=== PATIENT | male | born 1935 | race Caucasian/White ===

== ENCOUNTER → 2016-07-13 | Outpatient (CLI) | payer MEDICARE | LOC: M LAB 08:38 | PROVIDERS: ATTEND Radiology Radiation Oncology | DX: C61 Malignant neoplasm of prostate (principal) ==

== ENCOUNTER → 2016-07-19 | Outpatient (CLI) | payer MEDICARE ==
--- NOTE | 2016-07-20 06:58 | RADONC ---
RADIATION ONCOLOGY FOLLOWUP NOTE DATE: 07/19/2016 CHART NUMBER: [id number] DIAGNOSIS: Prostate cancer Stage: II A, [id number]. ECOG performance status zero. FOLLOWUP NOTE: Mr. 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 The patient presents today reporting that he is doing quite well with no complaints at this time related to his radiation therapy or disease. He has no urinary or bowel difficulties and no bone pain. REVIEW OF SYSTEMS: The patient's review of systems is noncontributory. Denies nausea, vomiting, fevers, chills, night sweats, diplopia, headaches, anxiety or depression, anorexia, weight loss, visual disturbances, chest pain, urinary or bowel difficulties, bone pain, or neurological problems. PHYSICAL EXAMINATION: The patient is a well-developed, well-nourished male in no acute distress. HEENT exam is normocephalic, atraumatic. Extraocular movements are intact. There is no palpable cervical, supraclavicular, infraclavicular, axillary, or inguinal lymphadenopathy present. Lungs are clear to auscultation and percussion. Heart has a regular rate and rhythm. Abdomen is benign with no hepatosplenomegaly, masses, or tenderness. Rectal examination reveals a normal anal sphincter tone. His prostate is smooth with no evidence of nodularity. Skeletal examination reveals no tenderness to pressure or percussion of the bony skeleton. Extremities reveal no clubbing, cyanosis, or edema. Neurologic exam is grossly intact, as is the remainder of the physical examination. ASSESSMENT: The patient is clinically JACQUES at this time and will be seen by us again in 6 months for further followup. He will also continue to be followed by his other physicians as well. cc: MD Margie Holt MD Alejandro Rodriguez, MD MTDD
== END ==
LOC: M ONCR 08:55
PROVIDERS: ATTEND Radiology Radiation Oncology
DX: C61 Malignant neoplasm of prostate (principal)

== ENCOUNTER → 2017-04-04 | Outpatient (CLI) | payer MEDICARE ==
[2017-04-04 10:10] LABS: PROSTATIC SPECIFIC AG MONITOR 0.31 NG/ML (< 4.0)
== END ==
LOC: M ONCR 09:00
DX: C61 Malignant neoplasm of prostate (principal)
CPT/HCPCS: 84153

== ENCOUNTER → 2017-10-10 | Outpatient (CLI) | payer MEDICARE ==
[2017-10-10 10:12] LABS: PROSTATIC SPECIFIC AG MONITOR 0.28 NG/ML (< 4.0)
== END ==
LOC: M ONCR 08:58
DX: C61 Malignant neoplasm of prostate (principal)
CPT/HCPCS: 84153

== ENCOUNTER → 2018-04-10 | Outpatient (CLI) | payer MEDICARE ==
[~2018-04-10] MED LIST: ALLE10TA2 PO; ASPI1TAB PO; RANI1TAB38 PO; SIMV20TA2 PO; VITA-176 PO; VITA500C24 PO
--- NOTE | 2018-04-10 10:08 | RADONC ---
RADIATION ONCOLOGY FOLLOWUP NOTE DATE: 04/10/2018 CHART NUMBER: [id number] DIAGNOSIS: Prostate cancer. STAGE: II A, [id number]. ECOG PERFORMANCE STATUS: 0 FOLLOWUP NOTE: Mr. Anglin is a very pleasant 83-year-old white male with the diagnosis of moderate to poorly differentiated Sherri score 7 (4-3) adenocarcinoma of prostate stage II A, [id number], who is presenting to us today for routine followup visit 3 years and 9 months post completion of external beam radiation therapy. The patient presents today reporting that he is doing quite well with no complaints at this time related to his radiation therapy or disease. He is having no urinary or bowel difficulties and no bone pain. The patient is having no fevers, chills, night sweats. REVIEW OF SYSTEMS: The patient's review of systems is noncontributory. Denies nausea, vomiting, fevers, chills, night sweats, diplopia, headaches, anxiety or depression, anorexia, weight loss, visual disturbances, chest pain, urinary or bowel difficulties, bone pain, or neurological problems. PHYSICAL EXAMINATION: The patient is a well-developed, well-nourished male in no acute distress. HEENT exam is normocephalic, atraumatic. Extraocular movements are intact. There is no palpable cervical, supraclavicular, infraclavicular, axillary, or inguinal lymphadenopathy present. Lungs are clear to auscultation and percussion. Heart has a regular rate and rhythm. Abdomen is benign with no hepatosplenomegaly, masses, or tenderness. Rectal examination reveals a normal anal sphincter tone. His prostate is smooth with no evidence of nodularity. Skeletal examination reveals no tenderness to pressure or percussion of the bony skeleton. Extremities reveal no clubbing, cyanosis, or edema. Neurologic exam is grossly intact, as is the remainder of the physical examination. ASSESSMENT: The patient is clinically JACQUES at this time and will be seen by me again in 6 months for further followup. He will also continue to be followed by his other physicians as well. He had been seeing Dr. Jenny Welch for his remote history of lymphoma. He is now going to transfer over to one of the other medical oncologists for routine followup for that disease as well. cc: MD Keira Herring MD [place], MD
== END ==
LOC: M ONCR 08:02
PROVIDERS: ATTEND Radiology Radiation Oncology
DX: C61 Malignant neoplasm of prostate (principal)

== ENCOUNTER → 2018-10-09 | Outpatient (CLI) | payer MEDICARE ==
[~2018-10-09] MED LIST changes: -ALLE10TA2 PO; -ASPI1TAB PO; +ASPI81TA26 PO; +LORA-753 PO
--- NOTE | 2018-10-10 08:39 | RADONC ---
RADIATION ONCOLOGY FOLLOWUP NOTE DATE: 10/09/2018 CHART NUMBER: [id number] DIAGNOSIS: Prostate cancer. STAGE II A, [id number]. ECOG PERFORMANCE STATUS: 0 FOLLOWUP NOTE: Mr. Anglin is an 84-year-old white male who has a diagnosis of a moderately differentiated to poorly differentiated Alpine 7 (4+3) adenocarcinoma of the prostate, stage II A. He presents for routine followup visit approximately 4 years after having completed a course of external beam radiation therapy. REVIEW OF SYSTEMS: He denies any specific complaints related to his disease or to his treatments. He specifically denies any nausea, vomiting, diarrhea, dysuria, hematuria or blood per rectum. He also denies any bowel difficulties or bone pain. He is taking Metamucil on a daily basis for regulation of his stools. The remainder of the review of systems is unchanged. EXAMINATION FINDINGS: The skin within the irradiated volume shows neither erythema nor desquamation. Lymphatics: No palpable peripheral lymphadenopathy is noted in the cervical, supraclavicular, axillary or inguinal lymph node chains. Lungs are clear. Heart: Regular without murmurs. Abdomen: Without evidence of hepatomegaly, masses, deep abdominal tenderness. Extremities: Without cyanosis, clubbing or edema. Neurologic examination: Physiologic. His most recent PSA was obtained today and revealed a level of 0.24 ng/mL. His result last year was 0.25 ng/mL. IMPRESSION: No clinical evidence of disease. PLAN: We would like to see him again on a p.r.n. basis and he was advised to return to his referring physicians as per their directions and instructions. Thank you for allowing us the opportunity of participation in the management of this very fine gentleman.
== END ==
LOC: M ONCR 08:24
PROVIDERS: ATTEND Radiology Radiation Oncology
DX: C61 Malignant neoplasm of prostate (principal); Z92.3 Personal history of irradiation
CPT/HCPCS: 36415; 84153; G0463

== ENCOUNTER 2019-09-11 12:00 | Day surgery (SDC) | payer MEDICARE ==
[~2019-09-11 12:00] MED LIST changes: +OMEP10CASR PO; +RIVA1CAP3 PO; -SIMV20TA2 PO; +SIMV20TA22 PO; +VITA-183 PO; +[UNRECOGNIZED DRUG - CODE] PO
[2019-09-11] MEDS ORDERED: propofoL 200 MG/20 ML VIAL As Ordered ONE (12:58)
[2019-09-11] MEDS ORDERED: LIDOCAINE 2% 100MG/5ML SDV (FOR ANES.) As Ordered ONE (12:58)
--- NOTE | 2019-10-15 11:33 | ROOR ---
Patient Name: Lauro Anglin Procedure Date: 09/11/2019 12:59 PM Date of : 1935 Age: 84 Room: [facility] Gender: Male Note Status: Finalized Procedure: Upper GI endoscopy Indications: Oral phase dysphagia Providers: Hilario ROTHMAN MD Referring MD: SKYLAR FAIR DO Requesting Provider: Medicines: Monitored Anesthesia Care Complications: No immediate complications. Procedure: Pre-Anesthesia Assessment: - The heart rate, respiratory rate, oxygen saturations, blood pressure, adequacy of pulmonary ventilation, and response to care were monitored throughout the procedure. The Endoscope was introduced through the mouth, and advanced to the second part of duodenum. The upper GI endoscopy was accomplished without difficulty. The patient tolerated the procedure well. Findings: The Z-line was variable and was found 38 cm from the incisors. A non-obstructing Schatzki ring was found at the gastroesophageal junction. The scope was withdrawn. Dilation was performed with a Wilkins dilator with no resistance at 54 Fr. The dilation site was examined following endoscope reinsertion and showed complete resolution of luminal narrowing. Biopsies were taken with a cold forceps for histology. The entire examined stomach was normal. The examined duodenum was normal. Impression: - Z-line variable, 38 cm from the incisors. - Non-obstructing Schatzki ring. Dilated with 54 Wilkins dilator. Biopsied. - Normal stomach. - Normal examined duodenum. Recommendation: - Observe patient's clinical course. - Continue present medications. - I anticipate no further need for intervention. Hilario ROTHMAN MD 09/11/2019 1:17:00 PM Number of Addenda: 0 Note Initiated On: 09/11/2019 12:59 PM Estimated Blood Loss: Estimated blood loss: none.
== END 2019-09-11 13:41 | disposition home or self-care (01) ==
LOC: M OPP 12:00
PROVIDERS: ATTEND Internal Medicine Gastroenterology
DX: K22.8 Other specified diseases of esophagus (principal); K22.2 Esophageal obstruction; R13.11 Dysphagia, oral phase; K21.9 Gastro-esophageal reflux disease without esophagitis; Z79.82 Long term (current) use of aspirin; Z79.899 Other long term (current) drug therapy; Z85.46 Personal history of malignant neoplasm of prostate; Z92.3 Personal history of irradiation

== ENCOUNTER → 2019-11-18 | Outpatient (CLI) | payer MEDICARE ==
[~2019-11-18] MED LIST changes: +E-Z-GAS II EFFERVESCENT PACKET (SODIUM BICARB./CITRIC ACID/SIMETHICONE) As Ordered ONE; +E-Z-HD 98% w/w 340GM SUSP BTL As Ordered ONE; +E-Z-PAQUE 96% w/w SUSP 176GM BTL As Ordered ONE; +ISOVUE-370 76% 100ML VIAL As Ordered ONE
--- NOTE | 2019-11-18 10:06 | REPVR ---
PROCEDURE INFORMATION: Exam: CT Neck With Contrast Exam date and time: 11/18/2019 8:46 AM Age: 84 years old Clinical indication: Neck pain; Additional info: Dysphagiact1, xr2 TECHNIQUE: Imaging protocol: Computed tomography images of the neck with intravenous contrast. Radiation optimization: All CT scans at this facility use at least one of these dose optimization techniques: automated exposure control; mA and/or kV adjustment per patient size (includes targeted exams where dose is matched to clinical indication); or iterative reconstruction. Contrast material: ISO 370; Contrast volume: 75 ml; Contrast route: INTRAVENOUS (IV); COMPARISON: RF ESOPHAGRAM - OUTSIDE PRIOR 12/16/2018 9:53 AM FINDINGS: Nasopharynx: Unremarkable. Oropharynx: Unremarkable. No significant tonsillar enlargement. Hypopharynx: Unremarkable. Larynx: Unremarkable. Normal epiglottis. Retropharyngeal space: Unremarkable. Submandibular/Parotid glands: Normal. Glands are normal in size. Thyroid: Normal. No enlarged or calcified nodules. Lymph nodes: Unremarkable. No lymphadenopathy. Trachea: Visualized trachea is unremarkable. Lungs: Unremarkable as visualized. Bones/joints: There is reversal of the normal cervical lordosis. There are coarse ventral bridging osteophytes, most pronounced at C2/3. There is multilevel severe intervertebral disc space loss. Soft tissues: Unremarkable. No significant soft tissue swelling. IMPRESSION: No acute soft tissue abnormality. Electronically signed by: Nery Cox On 11/18/2019 10:05:48 AM
--- NOTE | 2019-11-21 13:39 | REP ---
ESOPHAGRAM The procedure was performed by Wilda Daniel [facility], under the direct supervision of Dr. Lockhart. The images were reviewed with Dr. Lockhart prior to dictation. A single view PA chest x-ray is submitted as a manager stars film. There is some linear fibrosis in the left lower lobe. The heart size is within normal limits. Liquid barium and gas-producing granules were given in the erect position, as well as liquid barium in the prone oblique position, in order to perform a double-contrast esophagram examination. The oral and pharyngeal stages of deglutition demonstrated a mild delay in oral transfer. An incidental finding of degenerative disc disease of the C-spine was also visualized. Esophageal transport is prompt and efficient. There is no esophagitis, stricture, or mucosal ring. However, tertiary contractions were visualized multiple times throughout the course of the exam. No hiatal hernia or gastroesophageal reflux was visualized. IMPRESSION: Presbyesophagus. 0.6 minutes of fluoroscopy time was utilized for this procedure. DAVID
== END ==
LOC: M RAD 08:27
PROVIDERS: ATTEND Otolaryngology
DX: K22.8 Other specified diseases of esophagus (principal); R13.11 Dysphagia, oral phase
CPT/HCPCS: 70491; 74220; Q9967